=== PATIENT | male | born 1975 | race Caucasian/White ===

== ENCOUNTER 2018-12-07 02:00 | Emergency (ER) | payer BC ==
[~2018-12-07] VITALS: Ht 193 cm; Wt 95.5 kg
[~2018-12-07 02:00] MED LIST: DURICEF PO; NO HOME MEDICATIONS
[2018-12-07 02:01] VITALS: BP 155/101; PULSE 80; TEMP 98.7
== END 2018-12-07 02:53 | disposition home or self-care (01) ==
LOC: COL.ER 02:00
DX: S61.216A Laceration without foreign body of right little finger without damage to nail, initial encounter (principal); W22.09XA Striking against other stationary object, initial encounter; Y92.009 Unspecified place in unspecified non-institutional (private) residence as the place of occurrence of the external cause